=== PATIENT | male | born 1990 | race Two or more races ===

== ENCOUNTER 2022-01-07 08:00 | Outpatient (CLI) | payer OTHER | END 2022-01-07 08:30 | disposition home or self-care (01) | LOC: PPH VACUNA 08:00 | PROVIDERS: ATTEND Emergency Medicine Pediatric Emergency Medicine | DX: Z23 Encounter for immunization (principal) ==

== ENCOUNTER 2025-10-02 05:51 | Emergency (ER) | payer OTHER ==
[~2025-10-02] VITALS: Ht 170.2 cm; Wt 75.7 kg
[2025-10-02 06:00] VITALS: BP 113/75; O2SAT 100
[2025-10-02] MEDS ORDERED: HYOSCYAMINE SULFATE 0.125 MG TAB.SUBL SL ONE (07:30)
[2025-10-02] MEDS ORDERED: ONDANSETRON HCL 2 MG/ML VIAL IV ONE (07:30)
[2025-10-02] MEDS ORDERED: 0.9 % SODIUM CHLORIDE 1,000 ML IV ONE (07:30)
[2025-10-02] MEDS ORDERED: PANTOPRAZOLE SODIUM 40 MG/VIAL VIAL IV PUSH ONE (07:30)
[2025-10-02 09:16] LABS: BASO % 0.1 % (0.1-1.2); EOS # 0.01 (0.04-0.54); EOS % 0.1 % (0.7-7.0); LYMPH # 0.83 (1.18-3.74); LYMPH % 10.2 % (19.3-53.1); MEAN PLATELET VOLUME 9.20 fl (9.4-12.4); MONO # 0.51 (0.24-0.82); MONO % 6.3 % (4.7-12.5); NEUT # 6.73 (1.56-6.13); NEUT % 82.9 % (34.0-71.1); RED CELL DISTRIBUTION WIDTH 13.1 % (11.6-14.4)
[2025-10-02 09:49] LABS: ALT/SGPT 22.0 U/L (12-78); AST/SGOT 15.0 U/L (15-37); BILIRUBIN TOTAL 1.14 mg/dL (0.3-1.2); BUN CREA RATIO 20.0 (7.0-25.0); CREATININE SERUM 1.23 mg/dL (0.70-1.30); GFR 66.21; GLOBULINA 3.5 G/DL (2.4-3.5); GLUCOSE FASTING 105.0 mg/dL (65-100); OSMOLALITY SERUM 282.0 MOSM/KG (275-295)
== END 2025-10-02 13:35 | disposition home or self-care (01) ==
LOC: ER 05:52
PROVIDERS: General Practice
DX: K52.89 Other specified noninfective gastroenteritis and colitis (principal)